=== PATIENT | female | born 1965 | race Caucasian/White ===

== ENCOUNTER 2018-03-12 10:13 | Outpatient (CLI) | payer OTHER | END 2018-03-12 10:38 | disposition home or self-care (01) | LOC: RAD 10:13 → MRI 10:15 → RAD 10:38 | DX: M25.562 Pain in left knee (principal); M25.571 Pain in right ankle and joints of right foot; M25.561 Pain in right knee | CPT/HCPCS: 73718 ==

== ENCOUNTER 2018-06-08 06:10 | Day surgery (SDC) | payer OTHER ==
[~2018-06-08 06:10] MED LIST: PROTONIX40 MG PO
[2018-06-08] MEDS ORDERED: TRAMADOL HCL50 MG PO (10:17)
[2018-06-08] MEDS ORDERED: NABUMETONE500 MG PO (10:17)
== END 2018-06-08 15:15 | disposition home or self-care (01) ==
LOC: CIR.AMB 06:10
DX: M23.312 Other meniscus derangements, anterior horn of medial meniscus, left knee (principal); M23.322 Other meniscus derangements, posterior horn of medial meniscus, left knee; M94.262 Chondromalacia, left knee; M65.862 Other synovitis and tenosynovitis, left lower leg; M13.862 Other specified arthritis, left knee

== ENCOUNTER 2019-05-17 07:28 | Outpatient (CLI) | payer OTHER ==
[~2019-05-17 07:28] MED LIST changes: +NABUMETONE500 MG PO; +TRAMADOL HCL50 MG PO
== END 2019-05-17 07:42 | disposition home or self-care (01) ==
LOC: TOM 07:28
DX: K43.9 Ventral hernia without obstruction or gangrene (principal); K42.9 Umbilical hernia without obstruction or gangrene

== ENCOUNTER 2019-06-29 06:10 | Day surgery (SDC) | payer OTHER ==
[~2019-06-29 06:10] MED LIST changes: +NEXIUM 24HR20 MG PO
[2019-06-29] MEDS ORDERED: PERCOCET 5-3251 EACH PO (12:43)
[2019-06-29] MEDS ORDERED: MIRALAX17 GM PO (12:43)
[2019-06-29] MEDS ORDERED: SURFAK240 M1 PO (12:43)
[2019-06-29] MEDS ORDERED: NEURONTIN600 MG PO (12:43)
== END 2019-06-29 16:40 | disposition home or self-care (01) ==
LOC: CIR.AMB 06:10
DX: K42.0 Umbilical hernia with obstruction, without gangrene (principal); K43.6 Other and unspecified ventral hernia with obstruction, without gangrene